=== PATIENT | male | born 1995 | race Caucasian/White ===

== ENCOUNTER 2020-08-02 10:34 | Outpatient (REF) | payer OTHER, SELFPAY | END 2020-08-02 10:35 | disposition home or self-care (01) | LOC: HO.LAB 10:34 | PROVIDERS: Visit Provider Internal Medicine | DX: Z20.828 Contact with and (suspected) exposure to other viral communicable diseases (principal) | CPT/HCPCS: C9803; U0003 ==

== ENCOUNTER 2020-08-26 08:43 | Outpatient (REF) | payer OTHER, SELFPAY | END 2020-08-26 08:44 | disposition home or self-care (01) | LOC: HO.LAB 08:43 | PROVIDERS: Visit Provider Internal Medicine | DX: Z20.828 Contact with and (suspected) exposure to other viral communicable diseases (principal) | CPT/HCPCS: C9803; U0003 ==

== ENCOUNTER 2023-05-01 17:35 | Emergency (ER) | payer OTHER, SELFPAY ==
[2023-05-01] VITALS (8 sets, daily range): BP systolic 112–153; BP diastolic 70–81; PULSE 78–100; RESP 12–22; O2SAT 96–100; BMI 23.6
--- NOTE | ~2023-05-01 | CT_ITS ---
Examination: CT brain without contrast. Chest x-ray. Clinical indications: Cough. Altered mental status. COMPARISON: CT brain 04/29/2018 and chest x-ray 02/07/2015. TECHNIQUE: Chest one view. 5 mm thin axial and reformatted 2 mm thin coronal and sagittal images of brain were obtained. DLP 712 mGy/cm.. This CT examination was performed using dose optimization technique as appropriate, variously including the following: Automated exposure control Adjustment of MA and/or KV according to patient size(this includes techniques or standardized protocols for targeted exams where dose is matched to indication/reason for exam; extremities or head. Use of iterative reconstruction techniques. FINDINGS: Chest: The lungs are well-expanded and clear. The heart size and pulmonary vascularity is normal. No gross bony abnormality seen. Brain: There is no acute intra-axial, extra-axial bleed, masses or midline shift. There is no acute infarction evolution. There is no edema. The lateral ventricles are symmetrical in size and configuration without enlargement. The tolentino to white matter differentiation is maintained normal. Bone windows reveal no calvarial abnormality. Bilateral paranasal sinuses and mastoid air cells are well-aerated. There is no scalp soft tissue abnormality. CT/CT head/brain wo IV con IMPRESSION: Unremarkable chest exam. No acute intracranial process seen.
[2023-05-01 17:50] LABS: Glucose, Whole Blood 126 mg/dL (60-115)
--- NOTE | 2023-05-01 17:58 | PC.NURSE ---
pt currently sleeping after being transferred by ems. vss. POC 126mg/dL. pt currently handcuffed with [employer] police bedside next to pt. pt seemingly in no apparent distress. currently calm and cooperative. will complete tasks once pt wakes. will continue to monitor.
--- NOTE | 2023-05-01 18:16 | ECG_ITS ---
Test Reason : CHECK QT Blood Pressure : / mmHG Vent. Rate : 105 BPM Atrial Rate : 105 BPM P-R Int : 166 ms QRS Dur : 090 ms QT Int : 322 ms P-R-T Axes : 065 064 042 degrees QTc Int : 425 ms Sinus tachycardia Otherwise normal ECG When compared with ECG of 26-AUG-2016 00:20, No significant change was found Referred By: Al Vera Electronically Signed By:Jeffery Albarado
[2023-05-01 18:29] LABS: MANUAL DIFF FLAG NO
[2023-05-01 18:36] LABS: Basophils Percent Auto 0.2 % (0-2); Eosinophils Absolute Auto 0.1 X10*3/uL (0.0-0.4); Eosinophils Percent Auto 1.5 % (0-4); Hematocrit 46.8 % (42.0-52.0); Hemoglobin 16.5 g/dl (14.0-18.0); Imm Gran Abs Auto 0.02 X10*3/uL (0.00-0.03); Imm Gran Pct Auto 0.2 % (0.0-0.4); Lymphocytes Percent Auto 37.6 % (20-40); Mean Corpuscular HGB Conc 35.3 g/dl (31.0-36.0); Mean Corpuscular Hemoglobin 31.1 pg (27.0-33.0); Mean Corpuscular Volume 88.3 fL (80.0-98.0); Monocytes Absolute Auto 0.4 X10*3/uL (0.1-1.2); Monocytes Percent Auto 4.4 % (2-11); Neutrophils Absolute Auto 4.5 x10*3/uL (2.0-8.3); Neutrophils Percent Auto 56.1 % (45-73); Platelet Count 232 X10*3/uL (160-400); Red Cell Distribution Width 11.4 % (11.0-16.0); White Blood Count 8.1 X10*3/uL (4.8-10.8)
[2023-05-01 18:47] LABS: Alanine Aminotransferase 126 U/L (0-40); Albumin Level 4.4 g/dL (3.5-5.0); Alkaline Phosphatase 87 U/L (39-117); Anion Gap 14 (12-20); Aspartate Amino Transferase 318 U/L (5-37); Bilirubin Total 0.4 mg/dL (0.0-1.0); Blood Urea Nitrogen 13 mg/dL (9-16); Calcium 9.1 mg/dL (8.4-10.2); Carbon Dioxide 24 mmol/L (22-29); Chloride 110 mmol/L (96-108); Creatinine Clr Calc Pharmacy 119.2; Estimated Glomerular Filt Rate > 60; Ethanol 371 mg/dL; Glucose Random 116 mg/dL (60-115); Lipase 28 U/L (8-78); Potassium 3.5 mmol/L (3.3-5.1); Sodium 144 mmol/L (135-145); Total Protein 7.6 g/dL (6.5-8.0)
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
[2023-05-01] MEDS: LORazepam 2 MG/ML VIAL IM (19:00)
[2023-05-01] MEDS: Haloperidol Lactate 5 MG/ML VIAL IM (19:00)
[2023-05-01 19:03] LABS: Amphetamine Screen Urine Not Detected (Not Detect); Barbiturates, Urine Not Detected (Not Detect); Benzodiazepines Screen Urine Not Detected (Not Detect); Cannabinoid Screen Urine POSITIVE (Not Detect); Cocaine Screen Urine Not Detected (Not Detect); Fentanyl, urine Not Detected (Not Detect); Opiate Screen Urine Not Detected (Not Detect); Phencyclidine Screen Urine Not Detected (Not Detect)
--- NOTE | 2023-05-01 19:25 | PC.NURSE ---
[place] [place] police called for an update as their is an officer at bedside as the patient is in custody, the Lieutenant was given an update as to the status of the patient as we hadnt been able to get a CT scan yet, labs hadnt been resulted when he called. Officer in room had us tell Lt. [place] he will call him when he is able as he has poor cell service in room 22.
--- NOTE | 2023-05-01 20:41 | PC.NURSE ---
pt sleeping at this time, respirations even and unlabored, skin pwd, no apparent distress at this time
--- NOTE | 2023-05-01 21:08 | MHC.RECOVSUP ---
RC attempted to speak with this pt regarding treatment options but this pt was heavily sedated and didn'y respond to me calling his name. RC did provide recovery resources, please follow up with this pt tomorrow.
--- NOTE | 2023-05-01 21:09 | MHC.RECOVSUP ---
? Reason for consult:ETOH o? Current location:ED22? o? Identified substance use concern:? -? Support ? Intervention: o? Community resources provided ? Plan:Unknown ? Additional information:RUTH attempted to speak with this pt regarding treatment options but this pt was heavily sedated and didn'y respond to me calling his name. RUTH did provide recovery resources, please follow up with this pt tomorrow.
--- NOTE | 2023-05-01 21:10 | PC.NURSE ---
Pt continues to sleep, pt is in police custody at this time. PA David at bedside to check in and eval. No apparent distress. Continue plan of care for sobering up
== END 2023-05-01 22:33 ==
PROVIDERS: Physician Assistant; Emergency Provider Internal Medicine
DX: F10.129 Alcohol abuse with intoxication, unspecified (principal); Y90.8 Blood alcohol level of 240 mg/100 ml or more; R00.0 Tachycardia, unspecified; R50.9 Fever, unspecified; R07.89 Other chest pain; R41.82 Altered mental status, unspecified; F17.200 Nicotine dependence, unspecified, uncomplicated; Z71.6 Tobacco abuse counseling; Z79.899 Other long term (current) drug therapy
CPT/HCPCS: 36415; 70450; 71045; 80053; 80307; 82947; 83690; 85025; 87086; 93005; 96372; 99285; J2060

== ENCOUNTER → 2023-05-01 18:16 | Outpatient (BNV) | payer OTHER, SELFPAY | PROVIDERS: Emergency Provider Internal Medicine; Visit Provider Internal Medicine Cardiovascular Disease | DX: R00.0 Tachycardia, unspecified (principal) | CPT/HCPCS: 93010 ==

== ENCOUNTER 2023-10-08 14:56 | Outpatient (AMB) | payer OTHER, SELFPAY ==
--- NOTE | 2023-10-08 15:16 | MHC.PC.OV ---
Vital Signs 10/08/23 15:19 Weight 157 lb BP 140/90 H Blood Pressure Location Lt brachial Position Sitting Pulse 57 Pulse Source Pulse Oximeter Pulse Oximetry (%) 99 Oxygen Delivery Method Room Air Intake Visit Reasons: MED FUP/NEEDS PHQ9+THRIVE, rescheduled from 08/15 Intake Note: Patient here to follow up on HTN. Allergies No Known Allergies [No Known Allergies*] Allergy (Verified 10/08/23 15:50) Medication List - Last Reconciled 10/08/23 by BULMARO Quinones buprenorphine-naloxone 4-1 mg (Suboxone) 5 mg sublingual BEDTIME gabapentin 100 mg PO TID Tobacco use date assessed: 10/08/23 Dental Screening Dental Screen Date: 10/08/23 Did you have a dental visit in the last 12 months?: No Did you have a dental problem in the last 6 months where you did not have access to dental care?: No Was dental information given to patient?: Patient has dentist HPI MED FUP/NEEDS PHQ9+THRIVE, rescheduled from 08/15 HPI Details Pt is here for a PE. Will order labs. Pt's blood pressure is elevated today. Will start losartan 25mg. Will have pt monitor his BP at home and drop off values in about 4 weeks. Denies chest pain, shortness of breath, headache, dizziness, and blurred vision. [facility] Medical History (Updated 10/08/23 @ 15:48 by BULMARO Quinones) Hip dislocation, right Hip fracture, right Family History (Updated 08/22/21 @ 09:10 by Maxine Ya [facility]) Father Substance use disorder Mother Substance use disorder Social History Housing: House Alcohol intake: current Patient Tobacco Use Status: Current everyday Tobacco user Cigarettes Per Day: 10 e-Cigarette/Vaping Use: Never Used Second Hand Smoke Exposure: Yes service: No Current occupational status: employed Current occupation: [employer] Current occupational exposures/hazards: Yes Cognitive needs: No Hearing needs: No Vision needs: No Questionnaire PHQ-9 Over the last 2 weeks, how often have you been bothered by any of the following problems? [id number] - PHQ-9 Billing: Patient declined-do not bill Source: Developed by Drs. Armen English, Aracelis Qaurles, Jefferson Ellison and colleagues, with an educational pablo from [employer]. Thrive Questionnaire Date Thrive assessed: 10/08/23 What is your living situation today?: I choose not to answer this question Within the past 12 months, did the food you bought not last and you didn't have the money to get more?: I choose not to answer this question Within the past 12 months, did you worry whether your food would run out before you got money to buy more?: I choose not to answer this question Do you have trouble paying for medicines?: I choose not to answer this question Do you have trouble getting transportation to medical appointments?: I choose not to answer this question Do you have trouble paying your heating and electricity bill?: I choose not to answer this question Do you have trouble taking care of your child, family member or friend?: I choose not to answer this question Do you have trouble with day-to-day activities such as bathing, preparing meals, shopping, managing finances, etc.?: I choose not to answer this question Are you currently unemployed and looking for a job?: I choose not to answer this question Are you interested in more education?: I choose not to answer this question Currently or been in a relationship where the following occur: I choose not to answer this question AUDIT C Alcohol Use Questionnaire (AUDIT-C) 1. How often do you have a drink containing alcohol?: Never 3. How often do you have six or more drinks on one occasion?: Never Total Score: 0 Score Reviewed/Action Taken: No LORETTA-7 AMB Questionnaire LORETTA-7 Date LORETTA - 7 assessed: 10/08/23 Source: Developed by Drs. Armen English, Aracelis Quarles, Jefferson Ellison and colleagues, with an educational pablo from [employer]. LORETTA-7 Assessment Billing LORETTA-7 Assessment Tool: pt declined-do not bill Review of Systems Const Denies chills and Denies fever(s) Eyes Denies blurry vision ENT Denies vertigo, Denies dizziness and Denies sore throat Card Denies chest pain at rest, Denies chest pain with activity, Denies diaphoresis, Denies dyspnea and Denies dyspnea on exertion Resp Denies cough, Denies dyspnea, Denies dyspnea on exertion and Denies wheezing GI Denies abdominal pain, Denies melena, Denies hematochezia, Denies constipation, Denies diarrhea and Denies loose stools Denies hematuria Musc Denies numbness and Denies tingling Skin/Breast Denies lesions Neuro Denies vertigo, Denies dizziness, Denies numbness and Denies tingling Psych Denies anxiety, Denies depression, Denies homicidal ideation, Denies suicidal ideation and Denies other (substance abuse) Aller/Immun Denies wheezing Physical exam (Primary Care) Vital Signs: Last Vital Signs Pulse 57 10/08/23 15:19 BP 140/90 H 10/08/23 15:19 Pulse Ox 99 10/08/23 15:19 Oxygen Delivery Method Room Air 10/08/23 15:19 Tobacco/Smoking Status: Tobacco use Status Tobacco use date assessed 10/08/23 10/08/23 15:22 Patient Tobacco Use Status Current everyday Tobacco 10/08/23 15:19 e-Cigarette/Vaping Use Never Used 10/08/23 15:19 Thrive Assessment: Date of Thrive Assessment Date Thrive assessed 08/22/21 10/08/23 15:19 Currently or been in a relationship where the following occur: I choose not to answer this question Const General: cooperative Nutritional Appearance: well nourished Orientation/consciousness: patient oriented x3 HENMT Head: Yes normal to inspection, Yes normocephalic and Yes atraumatic Ears: TM's normal bilaterally Eyes General: appearance normal, both eyes and all related structures Alignment and Position: alignment normal and position normal Neck Neck: Yes normal visual inspection and Yes no lymphadenopathy Thyroid: Thyroid normal Resp Effort & Inspection: normal respiratory effort Auscultation: clear to auscultation bilaterally Cardio Rate: regular rate Rhythm: regular rhythm Heart sounds: S1 normal heart sound present, S2 normal heart sound present and no murmurs GI Palpation (GI): Soft to palpation and nontender Auscultation: normal bowel sounds Male General Exam: Yes normal external exam Penis: normal penis Scrotum: scrotum normal, testes descended bilaterally and no inguinal hernias Testes: no testicular mass Skin Rashes: no rashes Neuro General: patient oriented x3, moves all extremities, no focal motor deficits and deep tendon reflexes 2+ bilaterally Romberg Test: Negative Psych Appearance: grossly normal Mental Status: mental status grossly normal Speech and movement: Normal speech and movement present Affect: normal affect Attitude: cooperative Thought process: Normal thought process present Thought content: Normal thought content present Insight: Good insight present (Psych) Judgement: Good judgement present (Psych) Assessment and Plan Assessment & Plan (1) Physical exam: Code(s): Z00.00 - Encounter for general adult medical examination without abnormal findings Plan: Labs ordered (2) HTN (hypertension): Code(s): I10 - Essential (primary) hypertension Plan: starting losartan, pt will take his BP at home Plan The patient agreed to the use of a medical director occupational health for this encounter. Scribed for CHEMA Graham-BC by Dione Underwood medical director occupational health, on 10/08/2023 at 15:35 EST. Orders: Orders Lipid Panel Today Z00.00 - Encounter for general adult medical examination without abnormal findings Complete Blood Count Auto Diff Today Z00.00 - Encounter for general adult medical examination without abnormal findings Comprehensive [place]. Panel Fast Today Z00.00 - Encounter for general adult medical examination without abnormal findings TSH reflex Free T4 Today Z00.00 - Encounter for general adult medical examination without abnormal findings UA CC w/rflx Micro + Cult Today Z00.00 - Encounter for general adult medical examination without abnormal findings Medications: New losartan 25 mg PO DAILY 90 tabs 0RF Coding Level of Care Code Est Pt Prev Care 18-39y(24197) Diagnoses Physical exam Z00.00 HTN (hypertension) I10
[2023-10-08 15:19] VITALS: BP 140/90; PULSE 57; O2SAT 99
== END 2023-10-08 15:48 | disposition home or self-care (01) ==
PROVIDERS: PCP Nurse Practitioner Family; Visit Provider Nurse Practitioner Family
DX: Z00.00 Encounter for general adult medical examination without abnormal findings (principal); I10 Essential (primary) hypertension
CPT/HCPCS: 99395

== ENCOUNTER 2024-04-23 09:32 | Outpatient (AMB) | payer OTHER, SELFPAY ==
--- NOTE | 2024-04-23 09:33 | MHC.PC.OV ---
Vital Signs 04/23/24 09:35 Weight 182 lb 5 oz BP 150/92 H Blood Pressure Location Rt brachial Position Sitting Pulse 62 Pulse Source Pulse Oximeter Pulse Oximetry (%) 97 Oxygen Delivery Method Room Air Intake Visit Reasons: Followup HTN Intake Note: Patient here for HTN f/u Allergies No Known Allergies [No Known Allergies*] Allergy (Verified 04/23/24 10:11) Medication List - Last Reconciled 04/23/24 by BLUMARO Quinones buprenorphine-naloxone 4-1 mg (Suboxone) 5 mg sublingual BEDTIME gabapentin 100 mg PO TID losartan 50 mg PO DAILY Tobacco use date assessed: 10/08/23 Dental Screening Dental Screen Date: 10/08/23 HPI Followup HTN HPI Details HTN: Blood pressure is managed with losartan 25mg. Pt's blood pressure is elevated. Will increase losartan from 25mg to 50mg. Will have pt monitor his blood pressure at home and record readings. Denies chest pain, shortness of breath, headache, dizziness, and blurred vision. [facility] Medical History Hip dislocation, right Hip fracture, right Family History Father Substance use disorder Mother Substance use disorder Social History Housing: House Alcohol intake: current Patient Tobacco Use Status: Current everyday Tobacco user Cigarettes Per Day: 10 e-Cigarette/Vaping Use: Never Used Second Hand Smoke Exposure: Yes service: No Current occupational status: employed Current occupation: [employer] Current occupational exposures/hazards: Yes Cognitive needs: No Hearing needs: No Vision needs: No Questionnaire PHQ-9 Over the last 2 weeks, how often have you been bothered by any of the following problems? 1. Little interest or pleasure in doing things: not at all 2. Feeling down, depressed, or hopeless: not at all 3. Trouble falling or staying asleep, or sleeping too much: several days 4. Feeling tired or having little energy: not at all 5. Poor appetite or overeating: not at all 6. Feeling bad about yourself - or that you are a failure or have let yourself or your family down: several days 7. Trouble concentrating on things, such as reading the newspaper or watching television: not at all 8. Moving or speaking so slowly that other people could have noticed. Or the opposite - being so fidgety or restless that you have been moving around a lot more than usual: not at all 9. Thoughts that you would be better off or of hurting yourself in some way: not at all Total score: 2 Depression Screening Interpretation: Negative Depression Screening Done: Yes 69717 - PHQ-9 Billing: Yes Source: Developed by Drs. Armen English, Aracelis Quarles, Jefferson Ellison and colleagues, with an educational pablo from [employer]. Thrive Questionnaire Date Thrive assessed: 04/23/24 I am a: Patient What is your living situation today?: I have a steady place to live Within the past 12 months, did the food you bought not last and you didn't have the money to get more?: Never true Within the past 12 months, did you worry whether your food would run out before you got money to buy more?: Never true Do you have trouble paying for medicines?: No Do you have trouble getting transportation to medical appointments?: No Do you have trouble paying your heating and electricity bill?: No Do you have trouble taking care of your child, family member or friend?: No Do you have trouble with day-to-day activities such as bathing, preparing meals, shopping, managing finances, etc.?: No Are you currently unemployed and looking for a job?: Yes Are you interested in more education?: Yes Please select the resources that you would like help with: Housing/Long Term Currently or been in a relationship where the following occur: No concerns reported THRIVE Score: 0 AUDIT C Alcohol Use Questionnaire (AUDIT-C) 1. How often do you have a drink containing alcohol?: Never Total Score: 0 LORETTA-7 AMB Questionnaire LORETTA-7 Date LORETTA - 7 assessed: 04/23/24 Feeling nervous, anxious, or on edge: 0 = Not at all Not being able to stop or control worryin = Not at all Worrying too much about different things: 1 = Several days Trouble relaxin = Not at all Being so restless that it is hard to sit still: 1 = Several days Becoming easily annoyed or irritable: 1 = Several days Feeling afraid as if something awful might happen: 0 = Not at all Total LORETTA-7 score (0-4 normal; 5-9 mild; 10-14 moderate; 15-21 severe): 3 Source: Developed by Drs. Armen English, Aracelis Quarles, Jefferson Ellison and colleagues, with an educational pablo from [employer]. LORETTA-7 Assessment Billing LORETTA-7 Assessment Tool: LORETTA-7 Assessment 78805 Review of Systems Const Reports as per HPI Physical exam (Primary Care) Vital Signs: Last Vital Signs Pulse 62 04/23/24 09:35 BP 150/92 H 04/23/24 09:35 Pulse Ox 97 04/23/24 09:35 Oxygen Delivery Method Room Air 04/23/24 09:35 Tobacco/Smoking Status: Tobacco use Status Tobacco use date assessed 10/08/23 04/23/24 09:37 Patient Tobacco Use Status Current everyday Tobacco 04/23/24 09:37 e-Cigarette/Vaping Use Never Used 04/23/24 09:37 PHQ-9: PHQ-9 Score PHQ-9: Total score 2 04/23/24 09:41 Depression Screening Interpretation: Negative Thrive Assessment: Date of Thrive Assessment Date Thrive assessed 04/23/24 04/23/24 09:37 Currently or been in a relationship where the following occur: No concerns reported Const General: cooperative Orientation/consciousness: patient oriented x3 Resp Effort & Inspection: normal respiratory effort Auscultation: clear to auscultation bilaterally Cardio Rate: regular rate Rhythm: regular rhythm Heart sounds: S1 normal heart sound present and S2 normal heart sound present Neuro General: patient oriented x3 Psych Appearance: grossly normal Mental Status: mental status grossly normal Speech and movement: Normal speech and movement present Affect: normal affect Attitude: cooperative Thought process: Normal thought process present Thought content: Normal thought content present Insight: Good insight present (Psych) Judgement: Good judgement present (Psych) Assessment and Plan Assessment & Plan (1) HTN (hypertension): Code(s): I10 - Essential (primary) hypertension Plan: Increasing losartan from 25mg to 50mg, pt will monitor his BP at home, drop off values Plan The patient agreed to the use of a certified medical aide for this encounter. Scribed for PATRICIA GrahamP- by Dione Underwood, certified medical aide, on 04/23/2024 at 09:40 EST. Orders: Orders Complete Blood Count Auto Diff Today I10 - Essential (primary) hypertension Lipid Panel Today I10 - Essential (primary) hypertension TSH reflex Free T4 Today I10 - Essential (primary) hypertension Comprehensive [place]. Panel Fast Today I10 - Essential (primary) hypertension UA CC w/rflx Micro + Cult Today I10 - Essential (primary) hypertension Medications: Changed From losartan 25 mg PO DAILY 90 tabs 0RF To losartan 50 mg PO DAILY 90 tabs 0RF Coding Level of Care Code Est Pt Level 3 (85519) Diagnoses HTN (hypertension) I10 Additional Codes LORETTA-7 Assessment Billing - LORETTA-7 Assessment Tool: LORETTA-7 Assessment 13006 ([id number])
[2024-04-23 09:35] VITALS: BP 150/92; PULSE 62; O2SAT 97
== END 2024-04-23 11:04 | disposition home or self-care (01) ==
PROVIDERS: PCP Nurse Practitioner Family; Visit Provider Nurse Practitioner Family
DX: I10 Essential (primary) hypertension (principal)
CPT/HCPCS: 99213

== ENCOUNTER 2024-08-13 08:57 | Outpatient (AMB) | payer OTHER, SELFPAY ==
[2024-08-13 09:03] VITALS: BP 140/90; PULSE 66; O2SAT 97; BMI 28.5
--- NOTE | 2024-08-13 09:03 | A.OFFPC_ITS ---
Vital Signs 08/13/24 09:03 08/13/24 09:41 Height 5 ft 7 in Weight 182 lb BMI 28.5 BP 140/90 H 138/90 H Blood Pressure Location Lt brachial Lt brachial Position Sitting Sitting Pulse 66 Pulse Source Pulse Oximeter Pulse Oximetry (%) 97 Intake Visit Reasons: 4 month f/u Intake Note: pt is here for 4 month follow up Education Rn Required: No Accompanied by: Self / Same As Patient Allergies No Known Allergies [No Known Allergies*] Allergy (Verified 08/13/24 09:03) Medication List - Last Reconciled 08/13/24 by Eric Ospina, NET FINISHER- buprenorphine-naloxone 4-1 mg (Suboxone) 5 mg sublingual BEDTIME gabapentin 100 mg PO TID losartan 50 mg PO DAILY Tobacco use date assessed: 10/08/23 Dental Screening Dental Screen Date: 10/08/23 HPI 4 month f/u HPI Details HTN: elevated. Denies any sob, cp, LOPEZ, dizziness. He is currently on losartan 50mg. Will add HCTZ. Encouraged him to get labs in the near future. COUNTS INCLUDE 234 BEDS AT THE [facility] Medical History Hip dislocation, right Hip fracture, right Surgical History No pertinent past surgical history Family History Father Substance use disorder Mother Substance use disorder Social History Housing: House Alcohol intake: current Patient Tobacco Use Status: Current everyday Tobacco user Cigarettes Per Day: 10 e-Cigarette/Vaping Use: Never Used Second Hand Smoke Exposure: Yes service: No Current occupational status: employed Current occupation: [employer] Current occupational exposures/hazards: Yes Cognitive needs: No Hearing needs: No Vision needs: No Questionnaire Thrive Questionnaire Date Thrive assessed: 08/13/24 I am a: Patient What is your living situation today?: I have a steady place to live Within the past 12 months, did the food you bought not last and you didn't have the money to get more?: Never true Within the past 12 months, did you worry whether your food would run out before you got money to buy more?: Never true Do you have trouble paying for medicines?: No Do you have trouble getting transportation to medical appointments?: No Do you have trouble paying your heating and electricity bill?: No Do you have trouble taking care of your child, family member or friend?: No Do you have trouble with day-to-day activities such as bathing, preparing meals, shopping, managing finances, etc.?: No Are you currently unemployed and looking for a job?: Yes Are you interested in more education?: Yes Please select the resources that you would like help with: None Currently or been in a relationship where the following occur: No concerns reported THRIVE Score: 0 LORETTA-7 AMB Questionnaire LORETTA-7 Date LORETTA - 7 assessed: 04/23/24 Source: Developed by Drs. Armen English, Aracelis Quarles, Jefferson Ellison and colleagues, with an educational pablo from [employer]. Physical exam (Primary Care) Vital Signs: Last Vital Signs Pulse 66 08/13/24 09:03 BP 140/90 H 08/13/24 09:03 Pulse Ox 97 08/13/24 09:03 BMI result Body Mass Index 28.5 Tobacco/Smoking Status: Tobacco use Status Tobacco use date assessed 10/08/23 08/13/24 09:04 Patient Tobacco Use Status Current everyday Tobacco 08/13/24 09:04 e-Cigarette/Vaping Use Never Used 08/13/24 09:04 Thrive Assessment: Date of Thrive Assessment Date Thrive assessed 08/13/24 08/13/24 09:04 Currently or been in a relationship where the following occur: No concerns reported Const General: cooperative, healthy appearing, comfortable, no acute distress and well developed Resp Effort & Inspection: normal respiratory effort Auscultation: clear to auscultation bilaterally Cardio Rate: regular rate Rhythm: regular rhythm Heart sounds: S1 normal heart sound present, S2 normal heart sound present and no murmurs Extrem Right lower extremity: no edema Left lower extremity: no edema Psych Appearance: grossly normal Mental Status: mental status grossly normal Speech and movement: Normal speech and movement present Thought process: Normal thought process present Thought content: Normal thought content present Insight: Good insight present (Psych) Judgement: Good judgement present (Psych) Coding Level of Care Code Est Pt Level 3 (65525) Diagnoses HTN (hypertension) I10 Assessment & Plan Assessment & Plan (1) HTN (hypertension): Code(s): I10 - Essential (primary) hypertension Category: Medical Plan: adding HCTZ 12.5 Medications: New losartan-hydrochlorothiazide 50-12.5 mg 1 tab PO DAILY 90 tabs 0RF Discontinued losartan Discontinued Reason: Doctor's Order 50 mg PO DAILY 90 tabs 0RF
[2024-08-13 09:41] VITALS: BP 138/90
== END 2024-08-13 09:50 | disposition home or self-care (01) ==
PROVIDERS: PCP Nurse Practitioner Family; Visit Provider Nurse Practitioner Family
DX: I10 Essential (primary) hypertension (principal)

== ENCOUNTER → 2024-08-13 08:57 | Outpatient (BNVA) | payer OTHER, SELFPAY | PROVIDERS: PCP Nurse Practitioner Family; Visit Provider Nurse Practitioner Family | DX: I10 Essential (primary) hypertension (principal) | CPT/HCPCS: 99212 ==

== ENCOUNTER 2025-06-08 11:05 | Emergency (ER) | payer OTHER, SELFPAY ==
[2025-06-08 11:21] VITALS: BP 156/81; PULSE 59; RESP 18; TEMP 36.8; O2SAT 98; BMI 26.6
--- NOTE | 2025-06-08 11:21 | ED_ITS ---
HPI - General Adult General Chief complaint: General Medical Stated complaint: withdrawal symptoms Time Seen by Provider: 06/08/25 11:38 Source: patient, RN notes reviewed and old records reviewed Mode of arrival: ambulatory Limitations: no limitations History of Present Illness ED Provider: Jayna HPI narrative: Patient is a 30-year-old male with history of LILI presenting to the emergency department stating that he is withdrawing from Suboxone. Complaining of restless legs, nausea. States last dose was Sunday. [facility] but does not have appointment there until Sunday and feels he can not wait. Also states he is interested in switching to the [facility]. MD complaint: Suboxone withdrawal Related Data Home Medications ?Medication ?Instructions ?Recorded ?Confirmed buprenorphine 4 mg-naloxone 1 mg 5 mg sublingual BEDTI ME 08/22/21 08/13/24 sublingual film (Suboxone) gabapentin 100 mg capsule 100 mg PO TID 08/22/2108/13 Previous Rx's ?Medication ?Instructions ?Recorded losartan 50 mg-hydrochlorothiazide 1 tab PO DAILY #90 tabs 06/01/25 12.5 mg tablet Allergies Allergy/AdvReac Type Severity Reaction Status Date / Time No Known Allergies (No Known Allergy Verified 06/08/25 11:25 Allergies*) Review of Systems Review of Systems: as per hpi Yes all other systems are reviewed and are negative Constitutional: Constitutional: Reports as per HPI [facility] Past Medical History Medical History (Updated 06/08/25 @ 11:41 by Brittney Dorantes NP) Anxiety Opiate use Hip dislocation, right Hip fracture, right Surgical History No pertinent past surgical history Family History Family History Father Substance use disorder Mother Substance use disorder Social History Social History Housing: House Alcohol intake: current Patient Tobacco Use Status: Current everyday Tobacco user Cigarettes Per Day: 10 e-Cigarette/Vaping Use: Never Used Second Hand Smoke Exposure: Yes Advance Directives: No Advance Directives Information Provided: No service: No Current occupational status: employed Current occupation: [employer] Current occupational exposures/hazards: Yes Cognitive needs: No Hearing needs: No Vision needs: No Physical Exam ED Vital Signs: Vital Signs - 24 hr 06/08/25 11:21 Temperature 98.2 F Pulse Rate 59 Respiratory Rate 18 Blood Pressure 156/81 H Pulse Oximetry 98 Oxygen Delivery Method Room Air BMI result Body Mass Index 26.6 Vital signs have been reviewed and appear to be correct. Blood pressure normal. Heart rate normal. Respiratory rate normal. Temperature normal. Oxygen saturation normal. Const General: cooperative, healthy appearing and no acute distress Orientation/consciousness: oriented to person, oriented to place, oriented to time and patient oriented x3 Limitations: no limitations HENMT Head: Yes normocephalic and Yes atraumatic Ears: external ears normal General nose exam: Normal external nose present Face and sinus: Yes face symmetric Mouth: oropharynx normal and moist mucous membranes Throat: Yes uvula midline Eyes Pupils: Equal, round and reactive pupils present Neck Neck: Yes normal visual inspection and Yes supple Resp Effort & Inspection: normal respiratory effort and able to speak in complete sentences Auscultation: clear to auscultation bilaterally Cardio Rate: regular rate Rhythm: regular rhythm Heart sounds: S1 normal heart sound present and S2 normal heart sound present GI Palpation (GI): Soft to palpation and nontender Auscultation: normoactive bowel sounds General: Yes no CVA tenderness Back/Spine/Pelvis Back: no CVA tenderness Skin General skin exam: elasticity normal and turgor normal Neuro General: oriented to person, oriented to place, oriented to time, patient oriented x3, moves all extremities, no focal motor deficits and CN's II-XI intact bilaterally Cranial nerves: Yes Equal, round and reactive pupils present Cognition (Neuro): normal cognition Extrem General: Yes full ROM, Yes no pedal edema and Yes no calf tenderness Psych Mental Status: mental status grossly normal Affect: normal affect Thought process: Normal thought process present Medications Administered Discontinued Medications Generic Name Dose Route Start Last Admin Trade Name Freq PRN Reason Stop Dose Admin Buprenorphine/Naloxone 1 film 06/08/25 11:38 06/08/25 11:41 Buprenorphine/Naloxone 4/1 Mg Film SUBLINGUAL 06/08/25 11:39 1 film ONCE ONE Administration Medical Decision Making Medical Decision Making MDM Narrative: Patient is a 30-year-old male with history of LILI presenting to the emergency department stating that he is withdrawing from Suboxone. On exam patient is awake, A+Ox3, BP elevated, VS otherwise WNL, afebrile, normal neurological exam without focal deficits, physical exam findings as above. Given reported symptoms and physical exam findings, initial differential includes but is not limited to LILI, suboxone withdrawal. Case discussed with both Bridget Pham and Tammie Wylie who recommend dosing with suboxone here then discharging so he can go directly upstairs to the [facility]. Patient is agreeable with this plan. Patient medicated and return precautions discussed. Patient verbalized understanding of and agreement with plan. Differential Diagnosis Differential Diagnoses: The differential diagnosis associated with the presentation includes as per [facility] Admission/Observation Consideration of admission/observation: Escalation of care including admission/observation considered Patient would have been admitted to the hospital had their clinical presentation warranted hospital admission. Consult Healthcare Provider Management of the patient was discussed with: Vascular Ultrasound Technologist (Bridget Pham, Tammie Wylie) External Record Review External record reviewed: Inpatient record, Office record and Outpatient record Prescription Management I considered prescription management with: Other Discharge Plan Discharge Clinical Impression: Withdrawal complaint Patient Disposition: Home, Self-Care Instructions: Buprenorphine/Naloxone (Into the mouth) Additional Instructions: Please go directly to the [facility] for assistance with suboxone. Opiate use disorder You were seen in our Emergency Department today for treatment of opiate use disorder. You may have been dosed with medication for opiate use disorder (MOUD) in the form of suboxone or methadone. You may experience feeling some withdrawal symptoms and this is normal. The? d ose in the Emergency Department is a starting dose and meant to be titrated up once you follow up with a clinic. Please do not feel discouraged, it is a process. The nurse has reviewed with you where to follow up and what information to bring with you, to continue treatment. You also may have been given naloxone (narcan) to take home with you. This medication is used to potentially treat opiate overdose. If you decide you want to stop or cut down on how much you?re using, you can call or walk into our outpatient Addiction Treatment office: [facility] (M-F 9am-5p) [address] [place] [address], [phone] You may have been provided with safer injection?items, please take time to take care of YOU and your health. Use new supplies whenever possible to lessen the chances of infections and other illnesses.? ?If you need more supplies, please go [facility],? [address] [place], [place] you can call or text to coordinate delivery of safer supplies. You were also provided a list of several treatment providers in the area.? If you experience any worsening symptoms you cannot control please return to the ED or call 911. Please follow up at your next appointment. Things to look out for are fevers, chest pain, shortness of breath, severe pain, dizziness, fainting or any other concerns. Prescriptions: No Action losartan-hydrochlorothiazide 50-12.5 mg tablet 1 tab PO DAILY Qty: 90 0RF buprenorphine-naloxone [Suboxone] 4-1 mg film 5 mg sublingual BEDTIME gabapentin 100 mg capsule 100 mg PO TID Discharge Date/Time: 06/08/25 11:47 Print Language: Greek
[2025-06-08] MEDS: Buprenorphine/Naloxone 4/1 mg FILM 1 FILM SUBLINGUAL (11:41)
--- OUTSIDE RECORDS SUMMARY | 2025-06-08 16:12 | XMS_ITS | Clinical Summary ---
Author Organization [facility] Address [address] [facility] [address] [place] [phone] Phone Care Team Providers Care Flagger Name Role Phone Felicity Vyas MD Primary Care Provider [phone] Allergies No known active allergies Medications No known medications Immunizations Immunization Administration Dates Next Due Tdap 07/08/2019 Social History Tobacco Use Types Packs/Day Years Used Date Smoking Tobacco: Unknown Alcohol Use Standard Drinks/Week Comments Yes 0 (1 standard drink = 0.6 oz pur e alcohol) Education Answer Date Recorded Are you interested in more education? Not on chip e 12/26/2024 Are you concerned about learning? Not on file 12/26/2024 No 12/26/2024 No 12/26/2024 Digital Access Answer Date Recorded No 12/26/2024 No 12/26/2024 Reliable internet access at home? Not on file 12/26/2024 Device with a working camera? Not on file Sex and Gender Information Value Date Recorded Sex Assigned at Male 07/08/2019 10:14 PM EDT Legal Sex Male 8:51 PM EDT Gender Identity Male 07/08/2019 10:14 PM EDT Sexual Orientation Not on file Last Filed Vital Signs Vital Sign Reading Time Taken Comments Blood Pressure 103/52 07/09/2019 9:00 AM EDT Pulse 70 07/08/2019 11:13 PM EDT Temperature 36.9 C (98.4 F) 07/08/2019 10:12 PM EDT Respiratory Rate 20 07/08/2019 11:13 PM EDT Oxygen Saturation 95% 07/09/2019 9:00 AM EDT Inhaled Oxygen Concentration - - Weight 71.7 kg (158 lb) 07/08/2019 10:12 PM EDT Height 170.2 cm (5' 7 ) 07/08/2019 10:12 PM EDT Body Mass Index 24.75 07/08/2019 10:12 PM EDT Plan of Treatment Not on file Medical Devices Not on file Insurance [facility] [employer] [facility] [place] [address] [place] [address] [address] [place] [address] [facility]CO [facility] Care Teams Flagger Relationship Specialty Start Date End Date Felicity Vyas MD [address] [place] [address] PCP - General Internal Medicine 07/09/19 Additional Source Comments The information contained in this document represents components of the legal health record. It is not the complete legal health record.[facility]
== END 2025-06-08 11:47 | disposition home or self-care (01) ==
PROVIDERS: Emergency Provider Emergency Medicine; PCP Nurse Practitioner Family
DX: F11.23 Opioid dependence with withdrawal (principal); G25.81 Restless legs syndrome; R11.0 Nausea; Z79.899 Other long term (current) drug therapy
CPT/HCPCS: 99281; 99283

== ENCOUNTER 2025-06-09 09:55 | Outpatient (AMB) | payer OTHER, SELFPAY ==
[2025-06-09 10:01] VITALS: BP 138/76; PULSE 68; O2SAT 98; BMI 26.7
--- NOTE | 2025-06-09 10:01 | MHC.OFFVIS ---
Vital Signs 06/09/25 10:01 Height 5 ft 9 in Weight 181 lb BMI 26.7 BP 138/76 Pulse 68 Pulse Oximetry (%) 98 Intake Visit Reasons: MAT Intake Allergies No Known Allergies (No Known Allergies*) Allergy (Verified 06/09/25 10:01) HPI Comments Details: A 30 year male presents for a MAT intake to transfer care from [facility] for LILI. Reports in sustained remission with buprenorphine-naloxone 4-1 mg daily for past 2 years, with intermittent cravings at current dose. Denies use of opiates, alcohol, and other substances. Acknowledges smoking half a pack cigarettes per day and smoking an average of 1-2 grams daily of cannabis. Lives with grandfather and is currently out of work, spends time working out and actively looking for a work. [facility] Medical History (Updated 06/09/25 @ 10:30 by MARY Fan) Anxiety Opiate use Hip dislocation, right Hip fracture, right Surgical History No pertinent past surgical history Family History Father Substance use disorder Mother Substance use disorder Social History Housing: House Alcohol intake: current Patient Tobacco Use Status: Current everyday Tobacco user Cigarettes Per Day: 10 e-Cigarette/Vaping Use: Never Used Second Hand Smoke Exposure: Yes service: No Current occupational status: employed Current occupation: [employer] Current occupational exposures/hazards: Yes Cognitive needs: No Hearing needs: No Vision needs: No Review of Systems Const All systems reviewed & are unremarkable except as noted in HPI and below Physical Exam Vital Signs: Last Vital Signs Pulse 68 06/09/25 10:01 BP 138/76 06/09/25 10:01 Pulse Ox 98 06/09/25 10:01 BMI result Body Mass Index 26.7 Const General: cooperative Psych Appearance: well kempt Mental Status: mental status grossly normal Speech and movement: Normal speech and movement present Affect: Anxious affect present Attitude: cooperative Thought process: Normal thought process present Thought content: Normal thought content present Insight: Good insight present (Psych) Judgement: Good judgement present (Psych) Results AMB 14 Panel Urine Drug Screen Urine Marijuana (THC) Positive Last Edit by Moni Crump, MEDICAL PRACTICE ASSISTANT on 06/09/25 10:07 Urine Cocaine Negative Last Edit by Moni Crump, MEDICAL PRACTICE ASSISTANT on 06/09/25 10:07 Urine Morphine Negative Last Edit by Moni Crump, MEDICAL PRACTICE ASSISTANT on 06/09/25 10:07 Urine Methamphetamine Negative Last Edit by Moni Crump, MEDICAL PRACTICE ASSISTANT on 06/09/25 10:07 Urine Amphetamine Negative Last Edit by Moni Crump, MEDICAL PRACTICE ASSISTANT on 06/09/25 10:07 Urine Benzodiazepine Negative Last Edit by Moni Crump, MEDICAL PRACTICE ASSISTANT on 06/09/25 10:07 Urine Barbiturates Negative Last Edit by Moni Crump, MEDICAL PRACTICE ASSISTANT on 06/09/25 10:07 Urine Methadone Negative Last Edit by Moni Crump, MEDICAL PRACTICE ASSISTANT on 06/09/25 10:07 Urine Buprenorphine Positive Last Edit by Moni Crump, MEDICAL PRACTICE ASSISTANT on 06/09/25 10:07 Urine Tricyclic Antidepressant Negative Last Edit by Moni Crump, [facility] on 06/09/25 10:07 Urine MDMA Negative Last Edit by Moni Crump, MEDICAL PRACTICE ASSISTANT on 06/09/25 10:07 Urine Oxycodone Negative Last Edit by Moni Crump, MEDICAL PRACTICE ASSISTANT on 06/09/25 10:07 Urine Phencyclidine Negative Last Edit by Moni Crump, MEDICAL PRACTICE ASSISTANT on 06/09/25 10:07 Urine Propoxyphene Negative Last Edit by Moni Crump, [facility] on 06/09/25 10:07 Results Reviewed Results Reviewed: Laboratory Last Values POC Urine Buprenorphine Positive 06/09/25 10:05 POC Urine Morphine Negative 06/09/25 10:05 POC Urine Oxycodone Negative 06/09/25 10:05 POC Urine Methadone Negative 06/09/25 10:05 POC Urine Propoxyphene Negative 06/09/25 10:05 POC Urine Barbiturates Negative 06/09/25 10:05 POC U Tricyclic Antidpr Negative 06/09/25 10:05 POC Urine PCP Negative 06/09/25 10:05 POC Ur Amphetamines Negative 06/09/25 10:05 POC Ur Methamphetamine Negative 06/09/25 10:05 POC Urine MDMA Negative 06/09/25 10:05 POC Ur Benzodiazepine Negative 06/09/25 10:05 POC Urine Cocaine Negative 06/09/25 10:05 POC Ur Marijuana (THC) Positive 06/09/25 10:05 Assessment & Plan Assessment & Plan (1) Opioid use disorder in remission: Code(s): F11.91 - Opioid use, unspecified, in remission Category: Medical Plan The plan of care is to increase the dose of buprenorphine-naloxone from 4-1 mg daily to BID due to c/o intermittent symptoms of cravings. Education provided regarding risk reduction activities to minimize frequency and quantity of cigarette and cannabis smoking. Follow-up in 2 weeks or sooner if needed. Orders: Orders AMB 14 Panel Urine Drug Screen Today Z51.81 - Encounter for therapeutic drug level monitoring Medications: New buprenorphine-naloxone 4-1 mg (Suboxone) Place 1 strip sublingually, twice per day. 1 film sublingual BID 28 ea 0RF 14 days Patient Instructions: - Start with increased dose of buprenorphine-naloxone as prescribed to minimize cravings. - Engage in risk reduction activities to minimize frequency and quantity of cigarette and cannabis smoking. - Follow-up in 2 weeks or sooner if needed. - Call with questions, concerns, or to report side effects/new onset of symptoms to [facility]. - The patient verbalized understanding and agreed with plan of care. Coding Level of Care Code New Pt Level 3 (26310) Diagnoses Opioid use disorder in remission F11.91
--- OUTSIDE RECORDS SUMMARY | 2025-06-09 12:51 | XMS_ITS | Clinical Summary ---
Author Organization [facility] Address [address] [place] [address] Phone Care Team Providers Care Laborer Brush Clearing Name Role Phone Felicity Vays MD Primary Care Provider [phone] Allergies No known active allergies Medications No [...] Medical Devices Not on file Insurance [facility] ACO [facility] ALLIANCE ACO ACO [facility] [place] [address] [place] [address] [address] [place]CO [facility] ACO [facility] ACO Care Teams Laborer Brush Clearing Relationship Specialty Start Date End Date Felicity Vyas MD [address] [place] [address] PCP - General Internal Medicine 07/09/19 Additional Source Comments The information contained in this document represents components of the legal health record. It is not the complete legal health record.[facility]
== END 2025-06-09 10:14 | disposition home or self-care (01) ==
PROVIDERS: PCP Nurse Practitioner Family; Visit Provider Clinical Nurse Specialist Psychiatric/Mental Health
DX: F11.91 Opioid use, unspecified, in remission (principal); Z51.81 Encounter for therapeutic drug level monitoring
CPT/HCPCS: 99203

== ENCOUNTER → 2025-06-09 09:55 | Outpatient (BNVA) | payer OTHER, SELFPAY | PROVIDERS: PCP Nurse Practitioner Family; Visit Provider Clinical Nurse Specialist Psychiatric/Mental Health | DX: F11.91 Opioid use, unspecified, in remission (principal); Z51.81 Encounter for therapeutic drug level monitoring; F17.210 Nicotine dependence, cigarettes, uncomplicated; Z79.899 Other long term (current) drug therapy; Z71.6 Tobacco abuse counseling | CPT/HCPCS: 80307; 99202 ==

== ENCOUNTER 2025-06-23 09:58 | Outpatient (AMB) | payer OTHER, SELFPAY ==
[2025-06-23 10:03] VITALS: BP 140/80; PULSE 54; O2SAT 98
--- NOTE | 2025-06-23 10:03 | A.OFFVIS_ITS ---
Vital Signs 06/23/25 10:03 BP 140/80 H Pulse 54 Pulse Oximetry (%) 98 Intake Visit Reasons: MAT Allergies No Known Allergies (No Known Allergies*) Allergy (Verified 06/23/25 10:04) Medication List - Last Reconciled 06/23/25 by MARY Fan buprenorphine-naloxone 4-1 mg (Suboxone) 1 film sublingual BID 14 days losartan-hydrochlorothiazide 50-12.5 mg 1 tab PO DAILY HPI Comments Details: The patient is a 30-year-old male presenting for a follow-up visit r/t LILI. Reports a reduction in cravings since the increase in buprenorphine-naloxone 4-1 mg frequency from daily to twice per day. Prior to this adjustment, cravings were a significant issue. Denies use of opiates, alcohol, and other substances. The patient is proactively seeking employment and engaging in exercise routine which are contributing positively to his recovery efforts. The patient is accepting a referral to [facility] for mental health services. [facility] Medical History (Updated 06/09/25 @ 10:30 by MARY Fan) Anxiety Opiate use Hip dislocation, right Hip fracture, right Surgical History No pertinent past surgical history Family History Father Substance use disorder Mother Substance use disorder Social History Housing: House Alcohol intake: current Patient Tobacco Use Status: Current everyday Tobacco user Cigarettes Per Day: 10 e-Cigarette/Vaping Use: Never Used Second Hand Smoke Exposure: Yes service: No Current occupational status: employed Current occupation: [employer] Current occupational exposures/hazards: Yes Cognitive needs: No Hearing needs: No Vision needs: No Review of Systems Const All systems reviewed & are unremarkable except as noted in HPI and below Physical Exam Vital Signs: Last Vital Signs Pulse 54 06/23/25 10:03 BP 140/80 H 06/23/25 10:03 Pulse Ox 98 06/23/25 10:03 Const General: cooperative Assessment & Plan Assessment & Plan (1) Opioid use disorder in remission: Code(s): F11.91 - Opioid use, unspecified, in remission Category: Medical Plan The plan of care is to continue with buprenorphine-naloxone 4-1 mg BID. Education offered on community resources and recovery support. caustic room operator met with patient and provided additional resources and education. Referral sent to [facility] for mental health services. Follow-up in 1 month or sooner if needed. Medications: Changed From buprenorphine-naloxone 4-1 mg (Suboxone) Place 1 strip sublingually, twice per day. 1 film sublingual BID 14 days 28 ea 0RF To buprenorphine-naloxone 4-1 mg (Suboxone) Place 1 strip sublingually, twice per day. 1 film sublingual BID 30 ea 0RF 30 days Patient Instructions: - Continue taking buprenorphine-naloxone as prescribed. - Review community resource materials provided for additional support. - Attend follow-up appointment in one month, or sooner if needed. - Call with questions, concerns, or to report side effects/new onset of symptoms to [facility]. - The patient verbalized understanding and agreed with plan of care. Scribe Plan - Not visible on output: Patient was informed and verbally consented to the use of an ambient scribe for clinical note documentation during this visit. Coding Level of Care Code Est Pt Level 3 (31910) Diagnoses Opioid use disorder in remission F11.91
--- NOTE | 2025-06-23 10:29 | AM.OFFVISNUR ---
Vital Signs 06/23/25 10:03 BP 140/80 H Pulse 54 Pulse Oximetry (%) 98 Intake Visit Reasons: MAT Allergies No Known Allergies (No Known Allergies*) Allergy (Verified 06/23/25 10:04) Medication List - Last Reconciled 06/23/25 by Deirdre Kurtz SNOWMAKER-C buprenorphine-naloxone 4-1 mg (Suboxone) 1 film sublingual BID 14 days losartan-hydrochlorothiazide 50-12.5 mg 1 tab PO DAILY Nursing Note Provided Daryl with [facility] where and when book, Smart Meeting information as well as a multiple resource QR code scan page to assist in outpatient support. Assessment & Plan Assessment & Plan Medications: Changed From buprenorphine-naloxone 4-1 mg (Suboxone) Place 1 strip sublingually, twice per day. 1 film sublingual BID 14 days 28 ea 0RF To buprenorphine-naloxone 4-1 mg (Suboxone) Place 1 strip sublingually, twice per day. 1 film sublingual BID 30 ea 0RF 30 days Coding
--- OUTSIDE RECORDS SUMMARY | 2025-06-23 10:57 | XMS_ITS | Clinical Summary ---
Author Organization [facility] Address [address] [place] [address] Phone Care Team Providers Care Farmworker Brooder Farm Name Role Phone Felicity Vyas MD Primary Care Provider [phone] Allergies No known active allergies Medications No [...] file Medical Devices Not on file Insurance [facility] ACO [facility] ALLIANCE ACO ACO [facility] [place] [address] [place] [address] [place] [address] [place] [address] ACO [facility] ACO [facility] ACO Care Teams Farmworker Brooder Farm Relationship Specialty Start Date End Date Felicity Vyas MD [address] [place] [address] PCP - General Internal Medicine 07/09/19 Additional Source Comments The information contained in this document represents components of the legal health record. It is not the complete legal health record.[facility]
== END 2025-06-23 10:17 | disposition home or self-care (01) ==
LOC: HO.HCC 09:58
PROVIDERS: PCP Nurse Practitioner Family; Visit Provider Clinical Nurse Specialist Psychiatric/Mental Health
DX: F11.91 Opioid use, unspecified, in remission (principal)
CPT/HCPCS: 99213

== ENCOUNTER → 2025-06-23 09:58 | Outpatient (BNVA) | payer OTHER, SELFPAY | PROVIDERS: PCP Nurse Practitioner Family; Visit Provider Clinical Nurse Specialist Psychiatric/Mental Health | DX: F11.91 Opioid use, unspecified, in remission (principal); Z79.899 Other long term (current) drug therapy | CPT/HCPCS: 99212 ==

== ENCOUNTER 2025-09-15 11:04 | Outpatient (AMB) | payer OTHER, SELFPAY ==
[2025-09-15 11:05] VITALS: BP 140/90; PULSE 65; RESP 16; O2SAT 100; BMI 26.1
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
--- OUTSIDE RECORDS SUMMARY | 2025-09-15 12:25 | XMS_ITS | Clinical Summary ---
Author Organization [facility] Address [address] [place] [id number] Phone Care Team Providers Care Composing Room Machinist Name Role Phone Felicity Vyas MD Primary Care Provider [phone] Allergies No known active allergies Medications No [...] file Medical Devices Not on file Insurance [facility] [employer] [employer] ACO [facility] [place] [address] [place] [address] [address] [place] [address] [place] [address] [place] [address] ACO Care Teams Composing Room Machinist Relationship Specialty Start Date End Date Felicity Vyas MD [facility] [place] [address] PCP - General Internal Medicine 07/09/19 Additional Source Comments The information contained in this document represents components of the legal health record. It is not the complete legal health record.[facility]
== END 2025-09-15 12:46 | disposition home or self-care (01) ==
LOC: HO.HMCC 11:04
PROVIDERS: PCP Nurse Practitioner Family; Visit Provider Nurse Practitioner Family
DX: I10 Essential (primary) hypertension (principal); F19.10 Other psychoactive substance abuse, uncomplicated; F11.91 Opioid use, unspecified, in remission

== ENCOUNTER → 2025-09-15 11:04 | Outpatient (BNVA) | payer OTHER, SELFPAY | PROVIDERS: PCP Nurse Practitioner Family; Visit Provider Nurse Practitioner Family | DX: I10 Essential (primary) hypertension (principal); F19.10 Other psychoactive substance abuse, uncomplicated; F11.91 Opioid use, unspecified, in remission; Z13.31 Encounter for screening for depression; Z13.39 Encounter for screening examination for other mental health and behavioral disorders | CPT/HCPCS: 96127; 99212 ==